=== PATIENT | female | born 1970 | race Asian ===

== ENCOUNTER 2021-11-08 19:07 | Emergency (ER) | payer OTHER ==
[~2021-11-08] VITALS: Ht 162.6 cm; Wt 50.0 kg
[2021-11-08 23:10] LABS: BASOPHILS % 1.2 % (0.0-2.0); EOSINOPHILS % 2.7 % (0.0-5.0); HEMATOCRIT. 37.2 % (36.0-48.0); HEMOGLOBIN. 13.1 g/dL (12.0-16.0); LYMPHOCYTES % 44.4 % (20.0-50.0); MEAN CORPUSCULAR HEMOGLOBIN 30.6 pg (28.0-32.0); MEAN CORPUSCULAR VOLUME 86.7 fL (81.0-99.0); MEAN PLATELET VOLUME 7.3 fl (7.4-10.4); MONOCYTES % 5.4 % (2.0-8.0); NEUTROPHILS % 46.3 % (40.0-76.0); PLATELET 253 x1000/uL (130-400); RED BLOOD CELL COUNT 4.29 mill/uL (4.2-5.4)
[2021-11-08 23:30] LABS: CHLORIDE 106 mEq/L (98-107)
[2021-11-09 02:40] VITALS: BP 128/80
== END 2021-11-09 02:48 | disposition home or self-care (01) ==
LOC: ER 19:07
DX: R07.89 Other chest pain (principal); I51.9 Heart disease, unspecified
CPT/HCPCS: 36415; 71045; 80053; 84484; 85025; 85379; 99284